=== PATIENT | female | born 1995 | race Caucasian/White ===

== ENCOUNTER 2020-09-10 13:04 | Outpatient (REF) | payer MEDICAID, SELFPAY | END 2020-09-10 13:05 | disposition home or self-care (01) | LOC: HO.LAB 13:04 | PROVIDERS: Visit Provider Internal Medicine | DX: Z20.828 Contact with and (suspected) exposure to other viral communicable diseases (principal) | CPT/HCPCS: C9803; U0003 ==

== ENCOUNTER 2024-03-05 15:10 | Outpatient (REF) | payer MEDICAID, SELFPAY ==
[2024-03-05 18:14] LABS: TSH reflex Free T4 1.42 uIU/mL (0.32-4.0)
[2024-03-07 09:13] LABS: ~HepC Num1 0.13 S/CO (0.00-0.79); ~Hepatitis C Antibody Nonreactive (Nonreactive)
== END 2024-03-05 15:11 | disposition home or self-care (01) ==
LOC: HO.HHCL 15:10
PROVIDERS: Visit Provider Nurse Practitioner Family
DX: Z00.00 Encounter for general adult medical examination without abnormal findings (principal); E07.9 Disorder of thyroid, unspecified
CPT/HCPCS: 36415; 84443; 86803

== ENCOUNTER 2024-04-04 18:14 | Outpatient (REF) | payer MEDICAID, SELFPAY ==
[2024-04-11 12:07] LABS: C. trachomatis RNA TMA NOT DETECTED (NOT DETECTED); N. gonorrhoeae RNA TMA NOT DETECTED (NOT DETECTED); Trichomonas (NAAT) NOT DETECTED (NOT DETECTED)
[2024-04-11 20:44] LABS: HPV mRNA E6/E7 rflx Not Detected (Not Detected)
== END 2024-04-04 18:15 | disposition home or self-care (01) ==
LOC: HO.HHCLNP 18:14
PROVIDERS: Visit Provider Advanced Practice Midwife
DX: N93.9 Abnormal uterine and vaginal bleeding, unspecified (principal); Z12.4 Encounter for screening for malignant neoplasm of cervix; Z11.3 Encounter for screening for infections with a predominantly sexual mode of transmission
CPT/HCPCS: 87491; 87591; 87624; 87661; 88142

== ENCOUNTER 2024-06-21 18:27 | Outpatient (REF) | payer MEDICAID, SELFPAY ==
[2024-06-22 12:18] LABS: CT PCR NOT DETECTED (Not Detect.); NG PCR NOT DETECTED (Not Detect.)
[2024-06-22 13:12] LABS: Bacterial Vaginosis PCR NEGATIVE (Negative); Candida Group PCR NOT DETECTED (Not Detect); Candida glab krusei PCR NOT DETECTED (Not Detect); Trichomonas vaginalis PCR NOT DETECTED (Not Detect)
== END 2024-06-21 18:28 | disposition home or self-care (01) ==
LOC: HO.HHCLNP 18:27
PROVIDERS: Visit Provider Emergency Medicine
DX: R30.0 Dysuria (principal); R39.9 Unspecified symptoms and signs involving the genitourinary system; R82.79 Other abnormal findings on microbiological examination of urine
CPT/HCPCS: 0352U; 87086; 87491; 87591

== ENCOUNTER 2025-07-24 15:12 | Outpatient (REF) | payer MEDICAID, SELFPAY ==
--- OUTSIDE RECORDS SUMMARY | 2025-07-24 14:00 | XMS_ITS | Encounter Summary ---
Author Organization [employer] Address [address] [facility] 7t [place] [address] Care Team Providers Care Laboratory Geneticist Name Role Phone Rachael Smith Primary Care Provider [phone] Reason for Visit * Reason Comments transfer pt Encounter Details Date Type Department Care Team ([facility] Contact Info) Description 07/24/2025 2:00 PM EDT Office Visit [facility] [address] [place], [place] [phone] Rachael Smith FNP [address] [place] [address] Adult wellness visit (Primary Dx) Social History Tobacco Use Types Packs/Day Years Used Date Smoking Tobacco: Never Passive Smoke Exposure: Never Smokeless Tobacco: Never Comments:Patients vapes Alcohol Use Standard Drinks/Week Comments Not Currently 0 (1 standard drink = 0.6 oz pur e alcohol) occasional Depression Answer Date Recorded Patient Health Questionnaire-9 Score 6 07/24/2025 Patient Health Questionnaire-9 Score 6 07/24/2025 Last PHQ-9: Questionnaire Data Not on file 1 Housing Stability Answer Date Recorded What is your housing situation today? I have jeri cárdenas 05/23/[address] you li ve. Do you have problems with any of the following? None of the above 05/23/2025 Food Insecurity Answer Date Recorded Within the past 12 months, y ou worried that your food would run out before you got money to buy more: Never True 05/23/2025 Within the past 12 months,th e food you bought just didn't last and you didn't have enough money to get more: Never True Transportation Answer Date Recorded In the past 12 months, has l ack of transportation kept you from medical appts, meetings, work or from getting things needed for daily living? No 05/23/2025 Utilities Answer Date Recorded In the past 12 months, has t he electric, gas, oil or water company threatened to shut off services in your home? No 05/23/2025 Depression Answer Date Recorded Patient Health Questionnaire-2 Score 0 07/24/2025 Internet Access Answer Date Recorded Internet Access Q1 Yes 05/23/2025 Internet Access Q2 Not on file 05/23/2025 Comments No Intention Date Recorded No desire to become (finding) 1 Sex and Gender Information Value Date Recorded Sex Assigned at Female 08/23/2022 10:19 AM EDT Legal Sex Female 10:19 AM EDT Gender Identity Female 08/23/2022 10:19 AM EDT Sexual Orientation Choose not to disclose 2021 10:19 AM EDT documented as of this encounter Last Filed Vital Signs Vital Sign Reading Time Taken Comments Blood Pressure 120/80 07/24/2025 2:16 PM EDT Pulse 96 07/24/2025 2:16 PM EDT Temperature 37.2 C (98.9 F) 07/24/2025 2:16 PM EDT Respiratory Rate 16 07/24/2025 2:16 PM EDT Oxygen Saturation 98% 07/24/2025 2:16 PM EDT Inhaled Oxygen Concentration - - Weight 90.7 kg (200 lb) 07/24/2025 2:16 PM EDT Height 149.9 cm (4' 11 ) 07/24/2025 2:16 PM EDT Body Mass Index 40.4 07/24/2025 2:16 PM EDT documented in this encounter Functional Status * Over the past 2 weeks, how often have you been bothered by any of the following problems? Question Answer Date of Assessment Author Patient Health Questionnaire -2 Score 0 07/24/2025 3:01 PM EDT Kajal Hirsch MA * Little interest or pleasure in doing things Answer Date of Assessment Author Not at all 07/24/2025 3:01 PM EDT Kajal Hirsch MA * Feeling down, depressed, or hopeless Answer Date of Assessment Author Not at all 07/24/2025 3:01 PM EDT Kajal Hirsch MA * Trouble falling or staying asleep, or sleeping too much Answer Date of Assessment Author More than half the days 07/24/2025 3:01 PM EDT Kajal Abdi MA * Feeling tired or having little energy Answer Date of Assessment Author More than half the days 07/24/2025 3:01 PM EDT Kajal Abdi MA * Poor appetite or overeating Answer Date of Assessment Author More than half the days 07/24/2025 3:01 PM EDT Kajal Abdi MA * Feeling bad about yourself - or that you are a failure or have let yourself or your family down Answer Date of Assessment Author Not at all 07/24/2025 3:01 PM EDT Kajal Hirsch MA * Trouble concentrating on things, such as reading the newspaper or watching television Answer Date of Assessment Author Not at all 07/24/2025 3:01 PM EDT Kajal Hirsch MA * Moving or speaking so slowly that other people could have noticed? Or the opposite - being so fidgety or restless that you have been moving around a lot more than usual. Answer Date of Assessment Author Not at all 07/24/2025 3:01 PM Kajal Shultz MA * Thoughts that you would be better off or hurting yourself in some way Answer Date of Assessment Author Not at all 07/24/2025 3:01 PM Kajal Shultz MA * Patient Health Questionnaire-9 Score Answer Date of Assessment Author 6 07/24/2025 3:01 PM EDT Kajal Hirsch MA * How difficult have these problems made it for you to do your work, take care of things at home, or get along with other people? Answer Date of Assessment Author Not difficult at all 07/24/2025 3:01 PM LUIS AT Kajal Eisenberg MA * Over the last 2 weeks, how often have you been bothered by any of the following problems? Question Answer Date of Assessment Author Feeling nervous, anxious, or on edge 0 07/24/2025 3:02 PM EDT Kajal Hirsch MA Not being able to stop or co ntrol worrying 1 07/24/2025 3:02 PM EDT Kajal Hirsch MA Worrying too much about diff erent things 0 07/24/2025 3:02 PM EDT Kajal Hirsch MA Trouble relaxing 2 07/24/2025 3:02 PM EDT Kajal Abdi MA Being so restless that it is hard to sit still 2 07/24/2025 3:02 PM EDT Kajal Hirsch MA Becoming easily annoyed or irritable 0 07/24/2025 3:02 PM EDT Kajal Hirsch MA Feeling afraid as if somethi ng awful might happen 0 07/24/2025 3:02 PM EDT Kajal Hirsch MA SHIKHA-7 Total Score 5 07/24/2025 3:02 PM EDT Kajal Hirsch MA documented as of this encounter Plan of Treatment Upcoming Encounters Date Type Department Care Team (Late st Contact Info) Description 08/07/2025 9:30 AM EDT Office Visit [facility] [address] [place] [address] Rachael Smith FNP [address] [place] [address] Scheduled Orders Name Type Priority Associated Diagnoses Orde r Schedule Comprehensive Metabolic Panel Lab Routine Adult wellness visit Expected: 07/24/2025 (Approximate), Expires: 07/23/2026 Hepatitis B Core Antibody, Total Lab Routine Adult wellness visit Expected: 07/24/2025 (Approximate), Expires: 07/23/2026 TSH Lab Routine Adult wellness visit Expected: 07/24/2025 (Approximate), Expires: 07/23/2026 Hepatitis B Surface Antibody, Qualitative Lab Routine Adult wellness visit Expected: 07/24/2025 (Approximate), Expires: 07/23/2026 Hepatitis B surface antigen, EIA Lab Routine Adult wellness visit Expected: 07/24/2025 (Approximate), Expires: 07/23/2026 Hepatitis C Antibody with Reflex to HCV, RNA, Quantitative, Real-Time PCR Lab Routine Adult wellness visit Expected: 07/24/2025, Expires: 07/23/2026 CBC auto differential Lab Routine Adult wellness visit Expected: 07/24/2025 (Approximate), Expires: 07/23/2026 HIV-1/2 Antigen and Antibodies, Fourth Generation, with Reflexes Lab Routine Adult wellness visit Expected: 07/24/2025 (Approximate), Expires: 07/23/2026 Lipid Panel, Standard Lab Routine Adult wellness visit Expected: 07/24/2025 (Approximate), Expires: 07/23/2026 Hemoglobin A1c Lab Routine Adult wellness visit Expected: 07/24/2025 (Approximate), Expires: 07/23/2026 Chlamydia/N. Gonorrhoeae, PCR, Urine Lab Routine Adult wellness visit Ordered: 07/24/2025 documented as of this encounter Visit Diagnoses Diagnosis Adult wellness visit- Primary documented in this encounter Additional Health Concerns Assessment Noted Time PHQ-9 Depression Total Score: 6 07/24/20 25 3:01 PM EDT documented as of this encounter Care Teams Laboratory Geneticist Relationship Specialty Start Date End Date Rachael Smith FNP [address] [place] [phone] PCP - General Family Medicine 01/08/25 documented as of this encounter
[2025-07-24 16:12] LABS: MANUAL DIFF FLAG NO
--- OUTSIDE RECORDS SUMMARY | 2025-07-24 16:13 | XMS_ITS | Clinical Summary ---
Author Organization [employer] Address [address] [facility] 7t [place] [address] Care Team Providers Care Mechanic Chief Name Role Phone Rachael Smith CIRCUIT BOARD DRAFTER Primary Care Provider [phone] Allergies No known active allergies Medications * This document contains information received from the source organization and may not represent a complete record from that organization. cetirizine (ZyrTEC) 10 MG tabletIndicatio ns:Seasonal allergies Take 1 tablet (10 mg) by mouth Once per day. 30 tablet 11 4 Active ibuprofen 800 MG tablet TAKE 1 TABLET BY MOUTH EVERY 8 HOURS WITH FOOD FOR 7 DAYS 21 tablet 4 Active levothyroxine (Synthroid, Levoxyl) 112 MCG tablet TAKE 1 TABLET BY MOUTH EVERY MORNING 90 tablet 1 5 Active ulipristal (Eli) 30 mg tablet Take one tablet by mouth up to five days after sex. Do not use more than once per menstrual cycle. If repeat dose is needed in same cycle, please contact prescriber. 1 tablet 11 5 Active Ventolin HFA 108 (90 Base) MCG/ACT inhalerIndicati ons:Seasonal allergies INHALE 2 PUFFS BY MOUTH EVERY 4 HOURS NEEDED FOR WHEEZING OR SHORTNESS OF BREATH 18 g 1 5 Active Active Problems Problem Noted Date Diagnosed Date Eye drainage 08/30/2023 08/30/2023 Swelling of structure of eye 08/30/202304/2023 Allergic contact dermatitis 10/20/2018 11/0 04/2023 Shoulder pain 03/24/2018 08/30/2023 Obesity 01/10/2018 08/30/2023 Large breasts 01/10/2018 08/30/2023 Mild intermittent asthma 07/11/2017 023 Insomnia 07/11/2017 08/30/2023 Seasonal allergic rhinitis 03/28/201708/30 Migraine 07/21/2015 08/30/2023 Poor vision 08/29/2014 08/30/2023 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 08/30/20 23 Encounters Date Type Department Care Team Description 07/24/2025 2:00 PM EDT Office Visit [address] [address] Rachael Smith FNP Adult wellness visit (Primary Dx) 07/24/2025 Travel 07/17/2025 Patient Outreach [facility] [address] [place] [address] Rachael Smith FNP Pre-visit Planning (SDOH was already completed) 07/08/[address] [address] [place] FNP No Show 07/08/2025 Travel 07/08/[address] [address] Rachael Smith FNP Nurse Triage 06/02/[address] [address] Nancy Dan FNP Seasonal allergies 05/31/[address] [address] Rachael Smith FNP Chart Prep 05/23/2025 Patient Outreach [address] [address] Rachael Smith FNP Pre-visit Planning (SDOH screening negative and tobacco screening positive) 05/06/2025 1:15 PM EDT Procedure Visit [address] [address] Ortega Laird CNM Encounter for removal of etonogestrel implant (Primary Dx) 05/03/[address] [address] Ortega Laird CNM chart Prep from Last 3 Months Immunizations Immunization Administration Dates Next Due DTaP 11/05/1999, 8,06/10/1998,03/05 HPV, Quadrivalent 10/02/2009,11/15/2008,03/25/20 08 Hep B, Adolescent or Pediatric 08/22/1998,1997,03/05/1998 Hib (HbOC) 11/05/1999, 8,06/10/1998,03/05 IPV 05/28/2002, 8,06/10/1998,03/05 Influenza injectable quadriv alent IIV4 with preservative 07/11/2017,07/10/2015 Influenza injectable quadriv alent preservative free 07/19/2019,11/02/2018,07/23/2016,08/28 Influenza, IIV3, injectable 11/15/2008, 9 Influenza, live, intranasal 07/04/2013, 2 MMR 05/28/2002,11/05/1999 Meningococcal MCV4P ACYW-135 08/28/2014,10/02/20 09 TD (adult), 2 Lf tetanus tox oid, preservative free, adsorbed 07/29/2006 Tdap 02/02/2016 Varicella 03/25/2008,11/05/1999 Family History Medical History Relation Name Comments Asthma Brother Cancer Maternal Grandmother Stroke Maternal Grandmother Thyroid disease Mother Hypertension Mother's Sister Relation Name Status Comments Brother Maternal Grandmother Mother Mother's Sister Social History Tobacco Use Types Packs/Day Years Used Date Smoking Tobacco: Never Passive Smoke Exposure: Never Smokeless Tobacco: Never Tobacco Cessation:Counseling Given: Not Answered Comments:Patients vapes Alcohol Use Standard Drinks/Week Comments [...] not to disclose 2021 10:19 AM EDT Last Filed Vital Signs Vital Sign Reading [...] Mass Index 40.4 07/24/2025 2:16 PM EDT Plan of Treatment Upcoming Encounters Date Type Department Care Team (Late st Contact Info) Description 08/07/2025 9:30 AM EDT Office Visit [facility] [address] [place] [address] Rachael Smith FNP [address] [place], [place] [phone] Health Maintenance Due Date Last Done Comments Alcohol/Substance Use Screening 2009 Pneumococcal Vaccine: Pediatrics (0 to 5 Years) and At-Risk Patients (6 to 49) Years (1 of 2 - PCV) 2016 COVID-19 Vaccine (3 - season) 2025 01/19/2021, 12/22/2020 Influenza Vaccine (#1) 2025 9, 11/02/2018, 07/11/2017, Additional history exists DTaP/Tdap/Td Vaccines (7 - Td or Tdap) 02/01/2026 02/02/2016, 07/29/2006, 11/05/1999, Additional history exists SDOH Screening 05/23/2026 05/23/2025 Disability Screening 07/08/2026 07/08/2025 Depression Screening 07/24/2026 07/24/2025, 07/24/20 Family Planning (PISQ) 07/24/2026 07/24/2025 Tobacco Screening 07/24/2026 07/24/2025 Pap Smear 04/04/2027 04/04/2024 Lipid Panel 01/13/2028 01/12/2023, 09/23/2021 Zoster Vaccines (1 of 2) 12/27/2047 RSV Patients and Patients Aged 60 years or older (1 - 1-dose 75+ series) 2072 Hepatitis B Vaccines Completed 08/22/1998, 06/10/1998, 03/05/1998 HIB Vaccines Completed 11/05/1999, 07/26, 06/10/1998, Additional history exists IPV Vaccines Completed 05/28/2002, 07/26, 06/10/1998, Additional history exists HPV Vaccines Completed 10/02/2009, 10/25, 03/25/2008 Meningococcal Vaccine Completed 08/28/2014, 12/10/2 009 HIV Screening Completed 01/12/2023 Hepatitis C Screening Completed 03/05/2024 Hepatitis A Vaccines Aged Out No long er eligible based on patient's age to complete this topic Meningococcal B Vaccine Aged Out No l onger eligible based on patient's age to complete this topic RSV under 20 months Aged Out No longe r eligible based on patient's age to complete this topic Rotavirus Vaccines Aged Out No longer eligible based on patient's age to complete this topic Procedures Procedure Name Priority Date/Time Associated Diagnosis Comments VA REMOVAL NON-BIODEGRADABLE DRUG DELIVERY IMPLANT Routine 05/06/2025 1:30 PM EDT Encounter for removal of etonogestrel implant PAP SMEAR Routine 04/04/2024 10:52 AM EDT HEPATITIS C AB W/REFL TO HCV RNA, QN, PCR Routine 03/05/2024 12:00 AM EDT Routine general medical examination at a health care facility HIV 1 RNA, QN PCR W/RFL DANETTE (RTI,PI,INTEGRASE) Routine 01/12/2023 10:20 AM EDT Screening examination for sexually transmitted disease LIPID PANEL, STANDARD Routine 01/12/2023 10:20 AM EDT Routine general medical examination at a health care facility from Last 3 Months or Most Recently Relevant to Health Maintenance Results * VA REMOVAL NON-BIODEGRADABLE DRUG DELIVERY IMPLANT (05/06/2025 1:30 PM EDT) Ortega Weldon CNM - 05/06/2025 1:30 PM EDT Ortega Laird CNM 05/06/2025 1:44 PM Insertion/Removal of Contraceptive Capsule Date/Time: 05/06/2025 1:30 PM Performed by: Ortega Laird CNM Authorized by: Ortega Laird CNM Confirmed correct patient, procedure, site, and patient consented: Yes Participating Staff: Ortega Laird CNM Consent: Consent obtained: Verbal and written Consent given by: Patient Procedural risks and benefits discussed: Yes Patient questions answered: yes Patient agrees, verbalizes understanding, and wants to proceed: yes Educational handouts given: yes Instructions and paperwork completed: yes Indication: Indication: presence of non-biodegradable drug delivery implant Pre-procedure: Pre-procedure timeout performed: yes Prepped with: povidone-iodine Local anesthetic: 2ml 2% lidocaine. Procedure: Procedure: Removal Small stab incision was made in arm: yes Left/right: Left Site was closed with steri-strips and pressure bandage applied: yes Ortega Laird CNM IN CLINIC/BEDSIDE ORDERAB LES Final Result * Pap Smear (04/04/2024 10:52 AM EDT) 04/04/2024 10:5 2 AM EDT 04/05/2024 8:00 AM EDT [facility] - 04/23/2024 11:43 AM EDT ----- ------- Name: Claudia Chase Age/Sex: 28/F [facility] 1995 [id number] [id number] Attend Dr: ORTEGA LAIRD CNM Re04/04/24 Status: BENITEZ REF Location: HO.HHCLNP Disch: ----- ------- SPEC : [id number] RECD: 04/05/24 STATUS: OBINNA MORRIS NUM: [id number] MARGARITA: 04/04/24-[address] [facility] [address]: ORTEGA LAIRD CNM ENTERED: 04/05/24 SP TYPE: Pap Smr OT DR: ORDERED: Pap Smear Interpretation Satisfactory for evaluation. Negative for intraepithelial lesion or malignancy. HPV mRNA E6/E7: NOT DETECTED This assay detects E6/E7 viral messenger RNA (mRNA) from 14 high-risk HPV types (16, 18, 31, 33, 35, 39, 45, 51, 52, 56, 58, 59, 66, 68) HPV testing performed by [facility] [place], [place]. See reference laboratory portion of the EMR for entire report. Clinical Information LMP: 03/09/24 Previous PAP test: 2019, unknown findings. Other history: Implantable Control. Material Received ThinPrep-Vaginal ----- ------- Signed (signature on file) Trisha Magdaleno 04/23/24 1143 ----- ------- END OF REPORT us Ortega Laird CNM LAB CYTOLOGY ORDERABLES F inal Result [facility] [address] [place] [address] [phone] * Hepatitis C Antibody with Reflex to HCV, RNA, Quantitative, Real-Time PCR (03/05/2024 12:00 AM EDT) Hepatitis C Antibody Nonreactive Nonreactive [facility] Comment:Antibodies to HCV no t detected; does not exclude early acuteHCV infection. Blood Venous blood specimen / Unknown 03/05/2024 03/05/2024 Result [facility] LAB BLOOD ORDERABLES Final Resu lt [facility] [address] [place] [address] [phone] * HIV-1 RNA, Quantitative, Real-Time PCR with Reflex to Genotype (RTI, PI, Integrase) (01/12/2023 10:20 AM EDT) HIV 1 RNA, QN PCR NOT DETECTED copies/mL [facility], HIV 1 RNA, QN PCR NOT DETECTED Log copies/mL [facility], Comment: REFERENCE RANGE: NOT DETECTED copies/mL NOT DETECTED Log copies/mL This test was performed using Real-Time Polymerase Chain Reaction. Reportable range is 20 to 10,000,000 copies/mL (1.30-7.00 Log copies/mL). 01/12/2023 10:2 0 AM EDT 01/12/2023 10:22 AM EDT Narrative [facility] - 01/15/2023 12:26 AM EDT FASTING:UNKNOWN PATIENT UNABLE TO VOID; ADVISED TO RETURN FOR COLLECTION. FASTING: UNKNOWN [facility] LAB BLOOD ORDERABLES Final Resu lt [facility] [address], [place] [address] [facility], [address] [place] [address] * (ABNORMAL) Lipid Panel, Standard (01/12/2023 10:20 AM EDT) Cholesterol, Total 159 <200 mg/dL [facility] HDL Cholesterol 39(L) > OR = 50 mg/dL [facility] [place] [facility] Triglycerides 131 <150 mg/dL [facility] [place] LDL Cholesterol 97 mg/dL (calc) [facility] [place] [facility] Comment: Reference range: <100 Desirable range <100 mg/dL for primary prevention; <70 mg/dL for patients with CHD or diabetic patients with > or = 2 CHD risk factors. LDL-C is now calculated using the Yue calculation, which is a validated novel method providing better accuracy than the Friedewald equation in the estimation of LDL-C. Jose Elias FLORES et al. NICOLE. 2013;310(19): 3275-1227 (http://education.[employer]/faq/GHS504) Chol/HDLC Ratio 4.1 <5.0 (calc) [facility] [place] Non-HDL Cholesterol 120 <130 mg/dL (calc) [facility] [place] [facility] Comment: For patients with diabetes plus 1 major ASCVD risk factor, treating to a non-HDL-C goal of <100 mg/dL (LDL-C of <70 mg/dL) is considered a therapeutic option. Blood Venous blood specimen / Unknown 01/12/2023 10:20 AM EDT 01/12/2023 10:22 AM EDT Narrative [facility] - 01/15/2023 12:26 AM EDT FASTING:UNKNOWN PATIENT UNABLE TO VOID; ADVISED TO RETURN FOR COLLECTION. FASTING: UNKNOWN Talia Nyalor [employer] LAB BLOOD ORDERABLES Final Resu lt [facility] [address], [place] [address] [facility] [place] [facility] [address] [place] [address] from Last 3 Months or Most Recently Relevant to Health Maintenance Insurance C3 Care Teams Mechanic Chief Relationship Specialty Start Date End Date Rachael Smith FNP [address] [place] [phone] PCP - General Family Medicine 01/08/25
--- OUTSIDE RECORDS SUMMARY | 2025-07-24 16:13 | XMS_ITS | Encounter Summary ---
Author Organization [employer] Address [address] [facility] 7t [place] [address] Care Team Providers Care Manager Audit Name Role Phone Talia Naylor INTERMEDIATE FRAME TENDER Primary Care Provider [phone] Carmella Wolf SANFORIZING MACHINE OPERATOR Primary Care Provider [phone] Rachael Smith INTERMEDIATE FRAME TENDER Primary Care Provider [phone] Encounter Details Date Type Department Care Team (Late st Contact Info) Description 06/25/2024 Orders Only [facility] [address] [place], [place] [phone] Alonso Whaley MD [address] [place], [place] [phone] Social History Tobacco Use Types Packs/Day Years Used Date Smoking Tobacco: Never Smokeless Tobacco: Never Comments:Patients vapes Alcohol Use Standard Drinks/Week Comments Not Currently 0 (1 standard drink = 0.6 oz pur e alcohol) Depression Answer Date Recorded Patient Health Questionnaire-9 Score 10 02/29/2024 Patient Health Questionnaire-9 Score 10 02/29/2024 Last PHQ-9: Questionnaire Data Not on file 0 02/29/2024 Housing Stability Answer Date Recorded What is your housing situation today? I am not s ure 02/29/[address] you li ve. Do you have problems with any of the following? I am not sure 02/29/2024 Food Insecurity Answer Date Recorded Within the past 12 months, y ou worried that your food would run out before you got money to buy more: Often true 2023 Within the past 12 months,th e food you bought just didn't last and you didn't have enough money to get more: Sometimes True 02/29/2024 Transportation Answer Date Recorded In the past 12 months, has l ack of transportation kept you from medical appts, meetings, work or from getting things needed for daily living? No 02/21/2024 Utilities Answer Date Recorded In the past 12 months, has t he electric, gas, oil or water company threatened to shut off services in your home? No 02/21/2024 Depression Answer Date Recorded Patient Health Questionnaire-2 Score 1 02/29/2024 Comments No Sex and Gender Information Value Date Recorded Sex Assigned at Female 08/23/2022 10:19 AM EDT Legal Sex Female 10:19 AM EDT Gender Identity Female 08/23/2022 10:19 AM EDT Sexual Orientation Choose not to disclose 2021 10:19 AM EDT documented as of this encounter Plan of Treatment Upcoming Encounters Date Type Department Care Team (Late st Contact Info) Description 08/07/2025 9:30 AM EDT Office Visit [facility] [address] [place] [address] Rachael Smith FNP [address] [place] [address] documented as of this encounter Visit Diagnoses Not on filedocumented in this encounter Additional Health Concerns Assessment Noted Time PHQ-9 Depression Total Score: 10 024 4:05 PM EDT documented as of this encounter Care Teams Manager Audit Relationship Specialty Start Date End Date Talia Naylor FNP [address] [place] [address] PCP - General Family Medicine 07/30/22 06/26/24 Carmella Wolf NP [address] [place] [address] PCP - General Family Medicine 06/27/24 01/07/25 Rachael Smith FNP [address] [place] [phone] PCP - General Family Medicine 01/08/25 documented as of this encounter
--- OUTSIDE RECORDS SUMMARY | 2025-07-24 16:13 | XMS_ITS | Encounter Summary ---
Author Organization [employer] Address [address] [place] [address] Care Team Providers Care Double Back Operator Name Role Phone Talia Naylor Primary Care Provider [phone] Carmella Wolf PAID SEARCH MARKETING STRATEGIST Primary Care Provider [phone] Rachael Smith HOOK AND EYE ATTACHER Primary Care Provider [phone] Reason for Visit * Reason Onset Date Comments Referral 04/09/2024 Encounter Details Date Type Department Care Team (Late st Contact Info) Description 04/09/2024 Telephone [facility] [address] [place] [address] Talia Naylor FNP [address] [place] [address] Referral Social History Tobacco Use Types Packs/Day Years [...] AM EDT documented as of this encounter Miscellaneous Notes * Telephone Encounter - Javier Bowen - 04/09/2024 2:33 PM EDT Tc from pt calling in regards to allergy referral. [facility] to [facility] they are unable to see her until August. Pt stated she cannot wait that long and is requesting to be referred to a different location where she can possibly be seen sooner. If any questions please contact pt at [phone]. documented in this encounter Plan of Treatment Upcoming Encounters Date Type Department Care Team (Late st Contact Info) Description 08/07/2025 9:30 AM EDT Office Visit [facility] [address] [place] [address] Rachael Smith FNP [address] [place] [address] documented as of this encounter Visit Diagnoses Not on filedocumented in this encounter Additional Health Concerns Assessment Noted Time PHQ-9 Depression Total Score: 10 024 4:05 PM EDT documented as of this encounter Care Teams Double Back Operator Relationship Specialty Start Date End Date Talia Naylor FNP [address] [place] [address] PCP - General Family Medicine 07/30/22 06/26/24 Carmella Wolf NP [address] [place] [id number] PCP - General Family Medicine 06/27/24 01/07/25 Rachael Smith FNP [address] [place] [phone] PCP - General Family Medicine 01/08/25 documented as of this encounter
--- OUTSIDE RECORDS SUMMARY | 2025-07-24 16:13 | XMS_ITS | Clinical Summary ---
Author Organization [facility] Address [address] [place] [phone] Phone Care Team Providers Care Relay Record Clerk Name Role Phone [facility] Primary Care Provider Unavailable Allergies No known active allergies Medications levothyroxine (SYNTHROID, LEVOTHROID) 112 MCG tablet Take 112 mcg by mouth every morning. 05/27/2023 Active Social History Tobacco Use Types Packs/Day Years Used Date Smoking Tobacco: Never Assessed Education Answer Date Recorded Are you interested in more education? Not on juan e 08/29/2023 Are you concerned about learning? Not on file 08/29/2023 No 08/29/2023 No 08/29/2023 Digital Access Answer Date Recorded No 08/29/2023 No 08/29/2023 Reliable internet access at home? Not on file 08/29/2023 Device with a working camera? Not on file Intimate Partner Violence Answer Date R ecorded Are you denied basic needs s uch as food, clothing, or medical care? No 08/29/2023 In the past 12 months have y ou been in a relationship with a person who hurts, threatens, or tries to control you? No 08/29/2023 Are you denied basic needs s uch as food, clothing, or medical care? No 08/29/2023 In the past 12 months have y ou been in a relationship with a person who hurts, threatens, or tries to control you? No 08/29/2023 Comments Unknown Sex and Gender Information Value Date Recorded Sex Assigned at Not on file Legal Sex Female 8:49 PM EDT Gender Identity Not on file Sexual Orientation Not on file Last Filed Vital Signs Vital Sign Reading Time Taken Comments Blood Pressure 119/59 08/29/2023 3:10 PM EST Pulse 75 08/29/2023 3:10 PM EST Temperature 36.6 C (97.9 F) 08/29/2023 9:42 AM EST Respiratory Rate 18 08/29/2023 3:10 PM EST Oxygen Saturation 99% 08/29/2023 3:10 PM EST Inhaled Oxygen Concentration - - Weight 93 kg (205 lb) 08/29/2023 9:42 AM EST Height 149.9 cm (4' 11 ) 08/29/2023 9:42 AM EST Body Mass Index 41.4 08/29/2023 9:42 AM EST Plan of Treatment Health Maintenance Due Date Last Done Comments DEPRESSION SCREENING 2009 SMOKING Hx and SMOKELESS TOBACCO SCREENING 2010 HEPATITIS C SCREENING 12/27/2015 HIV ONE-TIME SCREENING (18-65 YEARS) 12/27/2015 PAP SMEAR 2018 TSH LEVEL 08/29/2024 08/29/2023 INFLUENZA VACCINE (#1) 2025 9, 11/02/2018, 07/11/2017, Additional history exists COVID-19 VACCINE ( season) 2025 01/19/2021, 12/22/2020 Adult Td,Tdap Booster 02/01/2026 02/02/2016, 006 HIB VACCINES Completed 11/05/1999, 07/26, 06/10/1998, Additional history exists MENINGOCOCCAL VACCINES (ACWY) Completed 08/28/2014, 10/02/2009 HEPATITIS A VACCINES Aged Out No long er eligible based on patient's age to complete this topic MENINGOCOCCAL VACCINES (B) Aged Out N o longer eligible based on patient's age to complete this topic PNEUMOCOCCAL VACCINES (0-49 years) Aged Out No longer eligible based on patient's age to complete this topic Medical Devices Not on file Procedures Procedure Name Priority Date/Time Associated Diagnosis Comments TSH WITH REFLEX Routine 08/29/2023 10:12 AM EST from Last 3 Months or Most Recently Relevant to Health Maintenance Results * TSH with reflex (08/29/2023 10:12 AM EST) TSH 1.19 0.27 - 4.20 uIU/mL [facility] 08/29/2023 10:1 2 AM EST 08/29/2023 10:36 AM EST us Rob Jaimes MD LAB BLOOD ORDERAB LES Final Result [address] [id number] from Last 3 Months or Most Recently Relevant to Health Maintenance Insurance C3 ACO C3 ACO C3 ACO C3 ACO C3 ACO C3 ACO C3 ACO C3 ACO C3 ACO Care Teams Relay Record Clerk Relationship Specialty Start Date End Date CenterSloan MD PCP - General 08/29/23 Additional Source Comments The information contained in this document represents components of the legal health record. It is not the complete legal health record.[facility]
--- OUTSIDE RECORDS SUMMARY | 2025-07-24 16:14 | XMS_ITS | Encounter Summary ---
Author Organization [employer] Address [address] [facility] [facility] [address] [place] [address] Care Team Providers Care Concrete Stone Finishing Supervisor Name Role Phone Rachael Smith PLATER HOT DIP Primary Care Provider Encounter Details Date Type Department Care Team (Latest Contact Info) Description 07/24/2025 Travel Social History Tobacco Use Types Packs/Day Years [...] Q2 Not on file 05/23/2025 Comments No Sex and Gender Information Value Date Recorded Sex Assigned at Female 08/23/2022 10:19 AM EDT Legal Sex Female 10:19 AM EDT Gender Identity Female 08/23/2022 10:19 AM EDT Sexual Orientation Choose not to disclose 2021 10:19 AM EDT documented as of this encounter Functional Status * Over the [...] 3:01 PM EDT Kajal Hirsch MA * Thoughts that you would be better off or hurting yourself in some way Answer Date of Assessment Author Not at all 07/24/2025 3:01 PM EDT Kajal Hirsch MA * Patient Health Questionnaire-9 Score Answer Date of Assessment Author 6 07/24/2025 3:01 PM EDT Kajal Hirsch MA * How difficult have these problems made it for you to do your work, take care of things at home, or get along with other people? Answer Date of Assessment Author Not difficult at all 07/24/2025 3:01 PM EDT Kajal Eisenberg MA * Over the last [...] SHIKHA-7 Total Score 5 07/24/2025 3:02 PM LUIS AT Kajal Hirsch MA documented as of this encounter Plan of Treatment Upcoming Encounters Date Type Department Care Team (Late st Contact Info) Description 08/07/2025 9:30 AM EDT Office Visit [facility] [address] [place], [place] [phone] Rachael Smith FNP [address] [place] [address] documented as of this encounter Visit Diagnoses Not on filedocumented in this encounter Additional Health Concerns Assessment Noted Time PHQ-9 Depression Total Score: 6 07/24/20 25 3:01 PM EDT documented as of this encounter Care Teams Concrete Stone Finishing Supervisor Relationship Specialty Start Date End Date Rachael Smith FNP [address] [place] [address] PCP - General Family Medicine 01/08/25 documented as of this encounter
[2025-07-24 16:16] LABS: Hematocrit 43.2 % (37.0-47.0); Hemoglobin 14.0 g/dl (12.0-16.0); Imm Gran Abs Auto 0.04 X10*3/uL (0.00-0.03); Imm Gran Pct Auto 0.3 % (0.0-0.4); Lymphocytes Absolute Auto 2.8 X10*3/uL (1.2-4.9); Mean Corpuscular HGB Conc 32.4 g/dl (31.0-35.0); Mean Corpuscular Hemoglobin 27.5 pg (27.0-33.0); Mean Corpuscular Volume 84.9 fL (80.0-98.0); NRBC Abs Auto 0.000 X10*3/uL (0.0-0.012); NRBC Pct Auto 0.0 /100WBC (0.0-0.2); Platelet Count 303 X10*3/uL (160-400); Red Blood Count 5.09 X10*6/uL (4.20-5.50); White Blood Count 13.3 X10*3/uL (4.8-10.8)
[2025-07-24 16:58] LABS: Alanine Aminotransferase 15 U/L (0-31); Albumin Level 4.4 g/dL (3.5-5.0); Anion Gap 10 (12-20); Aspartate Amino Transferase 45 U/L (5-31); Blood Urea Nitrogen 11 mg/dL (9-16); Calcium 9.0 mg/dL (8.4-10.2); Carbon Dioxide 26 mmol/L (22-29); Chloride 109 mmol/L (96-108); Cholesterol 152 mg/dL (<200); Estimated Glomerular Filt Rate > 60; HDL Cholesterol 32 mg/dL (>40); Potassium 3.5 mmol/L (3.3-5.1); Sodium 141 mmol/L (135-145); Total Protein 7.2 g/dL (6.5-8.0); Triglycerides 245 mg/dL (<150)
[2025-07-24 17:03] LABS: Alkaline Phosphatase 75 U/L (39-117)
[2025-07-24 17:06] LABS: Thyroid Stimulating Hormone 0.67 uIU/mL (0.32-4.0)
[2025-07-25 04:49] LABS: HBS Num1 15.94 mIU/mL (0-7.99); HBc Num1 0.05 S/CO (0.00-0.79); HBsAGNum1 0.40 S/CO (0.00-0.99); HIV Num 1 0.05 S/CO (0.00-0.99); Hepatitis B Surface Antigen Negative (Negative); ~HepC Num1 0.10 S/CO (0.00-0.79); ~Hepatitis B Surface Antibody REACTIVE (Nonreactive); ~Hepatitis C Antibody Nonreactive (Nonreactive)
[2025-07-25 05:56] LABS: CT PCR Urine NOT DETECTED (Not Detect.); NG PCR Urine NOT DETECTED (Not Detect.)
== END 2025-07-24 15:13 | disposition home or self-care (01) ==
LOC: HO.HHCL 15:12
PROVIDERS: PCP Nurse Practitioner Family; Visit Provider Nurse Practitioner Family
DX: Z00.00 Encounter for general adult medical examination without abnormal findings (principal); Z11.59 Encounter for screening for other viral diseases; Z11.4 Encounter for screening for human immunodeficiency virus [HIV]; Z20.2 Contact with and (suspected) exposure to infections with a predominantly sexual mode of transmission
CPT/HCPCS: 80053; 80061; 83036; 84443; 85025; 86704; 86706; 86803; 87340; 87389; 87491; 87591